=== PATIENT | female | born 1970 | race Caucasian/White ===

== ENCOUNTER 2019-11-18 16:02 | Emergency (ER) | payer BC, OTHER ==
[~2019-11-18] VITALS: Ht 167.6 cm; Wt 68.0 kg
[2019-11-18] MEDS ORDERED: KETOROLAC TROMETHAMINE 15 MG INJ IVP ONE (16:30)
[2019-11-18] MEDS ORDERED: LORAZEPAM 2 MG/1 ML VIAL IV ONE (16:30)
[2019-11-18 16:33] LABS: BASOPHILS % (AUTO) 0.2 % (0.0-2.0); HEMATOCRIT 36.3 % (31.2-41.9); HEMOGLOBIN 12.5 g/dL (10.9-14.3); LYMPHOCYTES # (AUTO) 0.8 K/uL (20.0-40.0); LYMPHOCYTES % (AUTO) 6.5 % (20.5-51.5); MEAN CORPUSCULAR HEMOGLOBIN 30.5 uug (24.7-32.8); MEAN CORPUSCULAR HGB CONC 34 g/dL (32.3-35.6); MEAN CORPUSCULAR VOLUME 88.8 fL (75.5-95.3); MONOCYTES # (AUTO) 0.3 K/uL (2.0-10.0); MONOCYTES % (AUTO) 2.2 % (0.0-11.0); NEUTROPHILS # (AUTO) 11.7 K/uL (1.8-8.9); NEUTROPHILS % (AUTO) 91.1 % (38.5-71.5); PLATELET COUNT (AUTO) 190 K/uL (179-408); RED BLOOD CELL COUNT(AUTO) 4.09 MIL/uL (3.63-4.92); WHITE BLOOD COUNT (AUTO) 12.8 K/uL (3.8-11.8)
[2019-11-18] MEDS ORDERED: KETOROLAC TROMETHAMINE 15 MG INJ ONE (16:33)
[2019-11-18] MEDS ORDERED: LORAZEPAM 2 MG/1 ML VIAL ONE (16:34)
[2019-11-18] MEDS ORDERED: BENA20TA9 PO (16:35)
[2019-11-18 16:43] LABS: POTASSIUM 3.6 mmol/L (3.5-5.1)
--- NOTE | 2019-11-18 16:47 | NUR ---
Patient does not wish to proceed with medical care recommended by . Patient given information related to possible complications, up to and including , which could occur as a result of leaving the hospital at this time. Patient verbalizes understanding of risks involved due to leaving against medical advice. Patient has signed AMA form.
[2019-11-18 16:51] LABS: BILIRUBIN,TOTAL 0.5 mg/dL (0.2-1.0); TOTAL PROTEIN, SERUM 7.6 g/dL (6.4-8.2)
[2019-11-18 16:52] LABS: BILIRUBIN,DIRECT 0.1 mg/dL (0.0-0.2)
== END 2019-11-18 16:48 | disposition left against medical advice (07) ==
LOC: ER 16:04
DX: R07.89 Other chest pain (principal); F41.9 Anxiety disorder, unspecified; Z79.899 Other long term (current) drug therapy; Z88.0 Allergy status to penicillin; Z88.5 Allergy status to narcotic agent; Z53.21 Procedure and treatment not carried out due to patient leaving prior to being seen by health care provider
CPT/HCPCS: 36415; 71045; 80048; 80076; 84484; 85025; 93005; 96374; 96375; 99285; J1885; J2060; 70030-TC; A4663